=== PATIENT | female | born 1945 | race Caucasian/White ===

== ENCOUNTER 2019-07-23 13:15 | Outpatient (RCR) | payer SELFPAY | END 2019-07-29 15:30 | disposition home or self-care (01) | LOC: ANHCPRIII 13:15 | PROVIDERS: PCP Family Medicine; Visit Provider Family Medicine | DX: Z95.5 Presence of coronary angioplasty implant and graft (principal); Z95.1 Presence of aortocoronary bypass graft | CPT/HCPCS: 99199 ==

== ENCOUNTER 2020-12-31 09:45 | Outpatient (RCR) | payer MEDICARE, SELFPAY ==
[2020-10-06 15:42] VITALS: BP 156/80; PULSE 86; RESP 16; O2SAT 96
[2020-10-06 16:03] VITALS: PULSE 86
--- NOTE | 2021-01-04 09:09 | PCCPR ---
Absent Sravanthi called states she will not be in she has been having nausea and vomiting. She plans to give her renal MD a call for an apt.
--- NOTE | 2021-01-06 15:13 | PCCPR ---
Absent-Wed & Thurs Sravanthi is having pain with urination. She states she has pain when walking at times as well. She states they have checked her for a UTI (which was negative) & they did a CT scan and cannot find anything. She is trying to get ahold of the urologist again.
--- NOTE | 2021-01-11 10:27 | PCCPR ---
Addendum entered by Molly Nassar RN 01/21/21 11:41: LM for Sravanthi inquiring how her MD follow up went and plan for her return. Original Note: Pt called; stated they are doing further testing on some bladder findings. She has her next OV 01/19, so will be on hold until then at least.
--- NOTE | 2021-01-21 12:15 | PCCPR ---
Addendum entered by Molly Nassar RN 02/01/21 15:29: Spoke with Sravanthi. States her [employer] Assembler will not agree to letting her go off her blood thinners for x 2 more months. States she is still having challenges with her bladder. Her Urologist thinks she may have bladder cancer. She suffers frequency of urination, bladder control at times and painful urination at the end of her stream. She is going to try her TM at home prior to return however agreed to be placed on hold until she has a more definite plan to return. Original Note: Hoping to return Monday. States she has had uterine pain on and off and she isnt sure whats triggering it. She is also trying to get ahold of the director audience marketing bc she states she needs a biopsy but wont do it currently due to being on a blood thinner. She states she will keep us posted.
--- NOTE | 2021-03-11 10:55 | PCCPR ---
Absent-has to take care of her granddaughter who is out of school today.
== END 2020-12-31 23:59 | disposition home or self-care (01) ==
LOC: ANHCPREHAB 09:45
PROVIDERS: PCP Family Medicine
DX: Z95.5 Presence of coronary angioplasty implant and graft (principal)
CPT/HCPCS: 93798

== ENCOUNTER 2021-03-25 09:45 | Outpatient (RCR) | payer MEDICARE, SELFPAY | END 2021-03-25 18:30 | disposition home or self-care (01) | LOC: ANHCPREHAB 09:45 | PROVIDERS: PCP Family Medicine; Visit Provider Internal Medicine Interventional Cardiology | DX: Z95.5 Presence of coronary angioplasty implant and graft (principal) | CPT/HCPCS: 93798 ==

== ENCOUNTER 2021-11-08 10:10 | Outpatient (RCR) | payer MEDICARE, SELFPAY ==
[2021-11-08] MEDS: ACETAMINOPHEN 325 MG TABLET 650 MG PO (11:36)
[2021-11-08] MEDS: FAMOTIDINE 20 MG TABLET PO (11:36)
[2021-11-08] MEDS: diphenhydrAMINE HCl CAP 25 MG CAPSULE PO (11:36)
[2021-11-08 11:38] VITALS: BP 157/59; PULSE 81; TEMP 36.7; O2SAT 99
[2021-11-08] MEDS: BEBTELOVIMAB 175 MG/2 ML VIAL IV PUSH (12:06)
[2021-11-08 12:59] VITALS: BP 130/67
== END 2021-11-08 16:00 ==
LOC: AMCINF 10:10
PROVIDERS: PCP Family Medicine; Referring Provider Family Medicine; Visit Provider Internal Medicine Hematology & Oncology
DX: U07.1 COVID-19 (principal); I10 Essential (primary) hypertension
CPT/HCPCS: A9270; M0222; Q0222

== ENCOUNTER 2021-12-09 15:00 | Outpatient (RCR) | payer MEDICARE, SELFPAY ==
[2021-09-24 11:43] VITALS: PULSE 79
[2021-09-29 16:19] LABS: Glucose Point of Care 86 mg/dl (65-105)
[2021-12-01 16:12] LABS: Glucose Point of Care 104 mg/dl (65-105)
== END 2021-12-09 17:35 | disposition home or self-care (01) ==
LOC: ANHCPREHAB 15:00
PROVIDERS: PCP Family Medicine; Visit Provider Internal Medicine Interventional Cardiology
DX: Z95.2 Presence of prosthetic heart valve (principal); Z95.5 Presence of coronary angioplasty implant and graft
CPT/HCPCS: 93798

== ENCOUNTER 2022-09-07 12:24 | Outpatient (CLI) | payer MEDICARE, SELFPAY ==
--- NOTE | 2022-09-07 16:15 | WPDPFTINT ---
PFT Procedure Performed PFT Procedure Performed Plethysmography (Lung Vol) Diffusing Cap (DLCO) Flow Vol Loop Spirometry w/o Bronchodil PFT Interpretation This is a pulmonary function test with spirometry, plethysmography and diffusing capacity. The test was performed and results interpreted in accordance with the 2019 and 2005 ATS/ERS Task Force guidelines respectively using the Global Lung Function Initiative-2012 reference equations. Patient demonstrated good effort and cooperation. Reproducibility criteria were met. The quality of the spirometry maneuver was Grade B. Findings: Spirometry: There is decreased maximal expiratory airflow at all lung volumes with a concave expiratory flow tracing. The contour the inspiratory flow tracing is normal. The FVC is 1.38 L, 51% predicted. The FEV1 is 1.02 L, 50% predicted. The FEV1: FVC ratio 74%. Plethysmography: The total lung capacity is 3.62 L, 71% predicted. The functional residual capacity is 2.64 L, 90% predicted. The residual volume is 1.93 L, 83% predicted. Diffusing capacity: The diffusing capacity unadjusted for hemoglobin and carboxyhemoglobin is 10.5, 53% predicted. The diffusing capacity adjusted for alveolar volume is 3.96, 95% predicted. Impression: There is a combined obstructive and restrictive ventilatory abnormality. There are no guidelines to assign the severity of obstruction and restriction with a combined abnormality. In my opinion, given the concave expiratory flow tracing and normal FEV1: FVC ratio and mild restrictive abnormality I would state there is a mild obstructive abnormality and a mmoderate restrictive abnormality resulting in a moderately severe decrease in the FEV1. The diffusing capacity unadjusted for hemoglobin and carboxyhemoglobin is moderately decreased and normalizes when adjusted for alveolar volume. There are no prior studies for comparison
== END 2022-09-07 12:25 | disposition home or self-care (01) ==
LOC: ANHCARD 12:25
PROVIDERS: PCP Family Medicine; Visit Provider Family Medicine
DX: C34.12 Malignant neoplasm of upper lobe, left bronchus or lung (principal); R94.2 Abnormal results of pulmonary function studies
CPT/HCPCS: 77385; 94375; 94726; 94729

== ENCOUNTER 2022-09-22 19:03 | Emergency (ER) | payer MEDICARE, SELFPAY ==
[2022-09-22] VITALS (9 sets, daily range): BP systolic 128–176; BP diastolic 81–94; PULSE 94–107; RESP 14–22; TEMP 36.9; O2SAT 91–98
--- NOTE | ~2022-09-22 | CT_ITS ---
EXAMINATION: CTA chest PE protocol DATE: 09/22/2022 21:36 INDICATION: Dyspnea. TECHNIQUE: Computed tomography angiography (CTA) of the chest was performed with 100 mL Omnipaque-350 intravenous contrast timed to evaluate the pulmonary arteries. Coronal maximum intensity projection 3D-reconstructions were created by the technologist. Automated exposure control and iterative reconst ruction technique were employed. The dose-length product was 321.70 mGy-cm. COMPARISON: CT abdomen and pelvis 06/08/2016, chest CT 10/09/2006 FINDINGS: There is smooth septal thickening in the lungs, consistent with pulmonary edema. There is a n 11 mm nodule in right lower lobe. There is a 9 mm nodule at left major fissure. There is a 5 mm nod ule in left lower lobe. There are a few scattered nodules measuring 4 mm or less. There is a 4.5 x 3. 5 cm mass in left lower lobe. A calcified left lung nodule and calcified left hilar lymph nodes are c onsistent with old granulomatous disease. There are small pleural effusions. There is no pulmonary em bolus. There is mild mediastinal and bilateral hilar lymphadenopathy. Cardiomegaly is noted. There ar e changes of aortic valve replacement. There are changes of coronary artery bypass grafting. There ar e bilateral mastectomies. There are surgical clips in the axillae bilaterally. There are chronic mass es in the adrenal glands measuring up to 2.0 cm on the right, likely adenomas. There is mild thoracic spondylosis. IMPRESSION: 1. No pulmonary embolus. 2. Mild pulmonary edema with small pleural effusions. 3. Pulmonary nodules and left lung lower lobe mass, consistent with metastatic disease. Reviewed, dictated and finalized at location E.
--- NOTE | ~2022-09-22 | XR_ITS ---
EXAMINATION: XR chest 1V portable DATE: 09/22/2022 19:44 INDICATION: Dyspnea. TECHNIQUE: A single frontal view of the chest was obtained. COMPARISON: Chest 2 views 12/21/2017, CT abdomen and pelvis 06/08/2016 FINDINGS: There is a diffuse interstitial pattern in the lungs. No pleural effusion or pneumothorax. The heart size is normal. There are changes of aortic valve replacement. Median sternotomy wires and mediastinal surgical clips are seen, likely from prior coronary artery bypass grafting. There are maddie gical clips in the axillae bilaterally. There are bilateral mastectomies. IMPRESSION: 1. Diffuse lung disease, likely mild pulmonary edema. Reviewed, dictated and finalized at location E.
--- NOTE | 2022-09-22 19:07 | ECG_ITS ---
Measurements Intervals [place] Rate: 99 P: 57 OK: 144 QRS: -9 QRSD: 154 T: 124 QT: 388 QTc: 499 Interpretive Statements SINUS RHYTHM POSSIBLE LEFT ATRIAL ENLARGEMENT LEFT BUNDLE BRANCH BLOCK ABNORMAL ECG NO PREVIOUS ECG AVAILABLE FOR COMPARISON Electronically Signed On 09-22-2022 21:12:17 CDT by Travis Valera D.O.
[2022-09-22 19:21] LABS: Basophils Percent Auto 0.3 % (0.2-1.2); Eosinophils Absolute Auto 0.1 K/mm3 (0-0.3); Eosinophils Percent Auto 3.4 % (0-4.4); Hematocrit 37.4 % (37.0-47.0); Hemoglobin 12.7 g/dL (12.0-15.0); Immature Granulocyte Absolute 0.01 K/mm3 (0.00-0.031); Immature Granulocyte Percent A 0.3 % (0-0.5); Lymphocytes Absolute Auto 0.91 K/mm3 (0.9-3.2); Lymphocytes Percent Auto 26.1 % (18.3-44.2); Mean Corpuscular Hemoglobin 30.6 pg (26-34); Mean Corpuscular Volume 90.1 fl (80-100); Mean Platelet Volume 10.3 fl (7.4-10.4); Monocytes Absolute Auto 0.3 K/mm3 (0.1-0.6); Monocytes Percent Auto 9.2 % (2.6-8.5); Neutrophils Absolute Auto 2.1 K/mm3 (1.3-6.7); Neutrophils Percent Auto 60.7 % (45.5-73.1); Platelet Count Result 177 k/mm3 (150-375); Red Blood Count 4.15 M/mm3 (4.2-5.4); White Blood Count 3.5 K/mm3 (4.5-10.0)
--- NOTE | 2022-09-22 19:21 | PC.NURSE ---
This RN assumed care of patient.
[2022-09-22 19:31] LABS: Alanine Aminotransferase 18 U/L (6-35); Alkaline Phosphatase 101 U/L (38-126); Anion Gap 7 mmol/L (8-16); Aspartate Amino Transferase 23 U/L (14-36); Bilirubin,Total 0.7 mg/dL (0.2-1.3); Blood Urea Nitrogen 18 mg/dL (7-17); Calcium 8.7 mg/dL (8.4-10.2); Carbon Dioxide 26 mmol/L (22-30); Chloride 105 mmol/L (98-107); Estimated CRCL calculation 51 ml/min; Estimated Glomerular Filt Rate > 60; Glucose 146 mg/dL (65-110); Lipase 43 U/L (23-300); Potassium 3.6 mmol/L (3.4-5.0); Sodium 138 mmol/L (137-145)
--- NOTE | 2022-09-22 19:32 | ED.ARRPALP ---
HPI - Arrhythmia/Palpitations General Chief Complaint: Arrhythmia/Palpitations <Cecelia Warren MD - Last Filed: 09/22/22 22:13> Stated Complaint: my heart <Cecelia Warren MD - Last Filed: 09/22/22 22:13> Time Seen by Provider: 09/22/22 19:22 <Cecelia Warren MD - Last Filed: 09/22/22 22:13> Source: patient <Cecelia Warren MD - Last Filed: 09/22/22 22:13> Mode of arrival: ambulatory <Cecelia Warren MD - Last Filed: 09/22/22 22:13> Limitations: no limitations <Cecelia Warren MD - Last Filed: 09/22/22 22:13> History of Present Illness HPI narrative: Patient is a 77-year-old female with a history of breast cancer status post bilateral mastectomies, hypertension, coronary artery disease, CABG, type 2 diabetes, hyperlipidemia, presenting to the emergency department for evaluation of anterior chest pressure and shortness of breath. Patient states she began to feel unwell 2 days ago. She reports difficulty breathing, cough. She reports rhinorrhea and congestion. She denies sore throat. No recent sick contacts. Patient denies leg swelling or calf pain. She denies history of anticoagulation. She does take dual antiplatelet therapy. Patient is known to have a right lower lung tumor that is not thought to be related to her breast cancer. She follows with [facility]. <Cecelia Warren MD - Last Filed: 09/22/22 22:13> Related Data Home Medications: Home Medications Medication Instructions Recorded Confirmed aspirin 81 mg tablet,delayed 81 mg PO DAILY 05/30/19 09/13/22 release (Adult Aspirin Regimen) lacosamide 100 mg tablet (Vimpat) 100 mg PO Q12H 05/30/19 09/13/22 diazepam 2 mg tablet 2 mg PO BID PRN Anxiety 07/11/19 09/13/22 nitroglycerin 0.4 mg sublingual 0.4 mg sublingual Q5M PRN Angina 07/11/19 09/13/22 tablet (Nitrostat) rosuvastatin 5 mg tablet 5 mg PO DAILY 10/06/20 09/13/22 diphenhydramine HCl 50 mg capsule 50 mg PO HS PRN Allergy Symptoms 09/24/21 09/13/22 carvedilol 3.125 mg tablet 3.125 mg PO Q12H 08/29/22 09/13/22 <Cecelia Warren MD - Last Filed: 09/22/22 22:13> Allergies/Adverse Reactions: Allergies Allergy/AdvReac Type Severity Reaction Status Date / Time ibuprofen Allergy Severe Anaphylactic Verified 09/22/22 19:04 Shock NSAIDS (Non-Steroidal Allergy Severe ANAPHALACTIC Verified 09/22/22 19:04 Anti-Inflamma SHOCK meperidine Allergy Mild vomiting Verified 09/22/22 19:04 ampicillin Allergy Unknown Skin Verified 09/22/22 19:04 Reaction codeine Allergy Unknown VOMITS Verified 09/22/22 19:04 VIOLENTLY divalproex sodium [Depakote] Allergy Unknown spaced out Verified 09/22/22 19:04 iodine Allergy Unknown VOMITS Verified 09/22/22 19:04 VIOLENTLY AND NON STOP morphine Allergy Unknown VOMITS Verified 09/22/22 19:04 VIOLENTLY naproxen Allergy Unknown anaphalaxis Verified 09/22/22 19:04 Opioids - Morphine Analogues Allergy Unknown Unknown Verified 09/22/22 19:04 Penicillins Allergy Unknown NAUSEA, Verified 09/22/22 19:04 VOMITING, DIARRHEA prednisone Allergy Unknown spaced out Verified 09/22/22 19:04 Contrast Media Allergy Unknown Unknown Uncoded 09/22/22 19:04 <Cecelia Warren MD - Last Filed: 09/22/22 22:13> Review of Systems Review of Systems: CONSTITUTIONAL: Denies fever, chills, or sweats. EYES: Denies visual changes, redness, or discharge. ENT: Reports rhinorrhea, congestion, denies sore throat, or otalgia. CARDIOVASCULAR: Reports chest pain without palpitations, or edema. RESPIRATORY: Reports cough and dyspnea GASTROINTESTINAL: Denies abdominal pain, nausea, vomiting, or diarrhea. GENITOURINARY: Denies dysuria or hematuria. SKIN: Denies rash or itching. MUSCULOSKELETAL: Denies back pain, joint pain, or myalgia. NEUROLOGIC: Denies headache, numbness, reports generalized weakness <Cecelia Warren MD - Last Filed: 09/22/22 22:13> [facility] Past Medical History Medical Hi
[2022-09-22 19:33] LABS: Partial Thromboplastin Time 25.9 SECONDS (22.3-36.8); Prothrombin Time 13.9 Seconds (11.1-14.7)
[2022-09-22] MEDS: LEVALBUTEROL NEB 1.25 MG/3 ML INHALATION (19:54)
[2022-09-22] MEDS: NITROGLYCERIN SL 0.4 MG TABLET SUBLINGUAL (19:58)
[2022-09-22 19:59] LABS: Troponin I 0.051 ng/mL (0.000-0.034)
[2022-09-22 20:07] LABS: Alveolar/Arterial O2 Gradient 67.6 mmHg; Base Excess ABG -0.8 mEq/l (+/-2.0); Carboxyhemoglobin 0.8 % THb (0-2.0); Fractional Inspired Oxygen 28 %; Methemoglobin ABG 0.1 %THb (0-1.5); Oxygen Content ABG 17.3 %vol (16.0-22.0); Oxygen Saturation ABG 97.7 % (95.0-100.0); Oxyhemoglobin 95.7 % THb (90.0-100.0); PCO2 ABG 30.9 mmHg (35.0-45.0); PO2 ABG 95.6 mmHg (80.0-100.0); PO2 FiO2 Ratio Arterial Blood 3.41 %; Reduced Hemoglobin 3.4 %THb (0-5.0); Total Hemoglobin 12.8 g/dL (12.0-18.0)
[2022-09-22 20:08] LABS: Device NASAL CANNULA; Site Drawn RIGHT BRACHIAL
[2022-09-22 20:18] LABS: D Dimer 1.33 ug/mL (<0.48)
[2022-09-22] MEDS: SODIUM CHLORIDE 0.9% IV 500 ML 999 ML IV CONT (20:18)
[2022-09-22] MEDS: methylPREDNISolone SOD SUCC 125 MG VIAL IV PUSH (20:18)
[2022-09-22 20:24] LABS: NT Pro B Type Natriuretic Pept 5160 pg/mL (19.9-100)
[2022-09-22 20:47] LABS: Lactic Acid Reflex 0.8 mmol/L (0.7-2.0)
[2022-09-22] MEDS: diphenhydrAMINE HCl INJ 50 MG/ML VIAL IV PUSH (20:50)
[2022-09-22 20:57] LABS: Appearance Urine Clear (Clear); Bacteria Urine None Seen /hpf; Bilirubin Urine Negative (Negative); Blood Urine Negative (Negative); Color Urine Yellow (Yellow); Glucose Urine UA 3+ mg/dL (Negative); Ketones Urine Negative (Negative); Leukocyte Esterase Ur Negative LEU/UL (Negative); Nitrate Urine Negative (Negative); Non Pathogenic Casts 0-2; Protein Urine Trace mg/dL (Negative); RBC Urine 0-2 /hpf (0-2); Specific Grav Ur 1.023 (1.001-1.035); Squamous Epithelial Cell Urine Few /hpf (Few); Urobilinogen Urine 0.2 mg/dL (<2.0); WBC Urine 0-5 /hpf; pH Urine 5.5 (5.0-9.0)
[2022-09-22 21:00] LABS: Add Urine Microscopic? YES
[2022-09-22 21:01] LABS: Troponin I 0.045 ng/mL (0.000-0.034)
[2022-09-22 21:15] LABS: Influenza A QL RT-PCR Negative (Negative); Influenza B QL RT-PCR Negative (Negative); RSV RNA, RT-PCR Negative (Negative); SARS-CoV-2 RNA PCR Negative (Negative)
[2022-09-22] MEDS: HEPARIN SOD/D5W 100 UNITS/ML 25,000 UNITS/250 ML BAG 7 UNITS IV CONT (21:45)
[2022-09-22] MEDS: HEPARIN SODIUM 5,000 UNITS/ML VIAL 3500 UNITS IV PUSH (21:45)
[2022-09-22] MEDS: FUROSEMIDE INJ 40 MG/4 ML VIAL 20 MG IV PUSH (22:47)
--- NOTE | 2022-09-22 23:02 | PC.NURSE ---
Discontinued heparin drip verbal order from MD Dr. Warren.
[2022-09-23] VITALS (24 sets, daily range): BP systolic 130–154; BP diastolic 70–87; PULSE 76–106; RESP 0–23; O2SAT 93–96
[2022-09-23 04:12] LABS: Troponin I 0.041 ng/mL (0.000-0.034)
[2022-09-23 06:41] LABS: Basophils Percent Auto 0.3 % (0.2-1.2); Hematocrit 36.3 % (37.0-47.0); Hemoglobin 12.2 g/dL (12.0-15.0); Immature Granulocyte Absolute 0.02 K/mm3 (0.00-0.031); Immature Granulocyte Percent A 0.6 % (0-0.5); Lymphocytes Absolute Auto 0.46 K/mm3 (0.9-3.2); Lymphocytes Percent Auto 12.7 % (18.3-44.2); Mean Corpuscular HGB Conc 33.6 g/dl (32-36); Mean Corpuscular Hemoglobin 30.1 pg (26-34); Mean Corpuscular Volume 89.6 fl (80-100); Mean Platelet Volume 10.1 fl (7.4-10.4); Monocytes Absolute Auto 0.1 K/mm3 (0.1-0.6); Neutrophils Percent Auto 83.4 % (45.5-73.1); Platelet Count Result 188 k/mm3 (150-375); Red Blood Count 4.05 M/mm3 (4.2-5.4); Red Cell Distribution Width 14.9 % (11.5-14.5); White Blood Count 3.6 K/mm3 (4.5-10.0)
--- NOTE | 2022-09-23 07:42 | PC.NURSE ---
ALs Transfer to [facility] RM [id number] on [facility] declined [facility] accepted transfer ETA [id number] Trip # [phone]
[2022-09-23] MEDS: ASPIRIN 325 MG TABLET PO (08:58)
[2022-09-23] MEDS: CLOPIDOGREL BISULFATE 75 MG TABLET PO (08:59)
[2022-09-23] MEDS: carvediloL 3.125 MG TABLET PO (08:59)
[2022-09-23] MEDS: TELMISARTAN 40 MG TABLET 80 MG PO (08:59)
[2022-09-23] MEDS: LACOSAMIDE (*CRX) 100 MG TABLET PO (09:00)
== END 2022-09-23 09:37 | disposition short-term general hospital (02) ==
PROVIDERS: Emergency Provider Emergency Medicine; PCP Family Medicine
DX: I11.0 Hypertensive heart disease with heart failure (principal); I50.9 Heart failure, unspecified; I25.10 Atherosclerotic heart disease of native coronary artery without angina pectoris; I25.810 Atherosclerosis of coronary artery bypass graft(s) without angina pectoris; E11.9 Type 2 diabetes mellitus without complications; E78.5 Hyperlipidemia, unspecified; Z79.82 Long term (current) use of aspirin; Z85.3 Personal history of malignant neoplasm of breast; Z87.891 Personal history of nicotine dependence; Z20.822 Contact with and (suspected) exposure to COVID-19
CPT/HCPCS: 36415; 36600; 71045; 71275; 80053; 81001; 82375; 82805; 83050; 83605; 83690; 83880; 84484; 85025; 85380; 85610; 85730; 87040; 87637; 93005; 94640; 96361; 96365; 96375; 99285; A9270; J1200; J1644; J1940; J2930; J7040; Q9967

== ENCOUNTER 2023-02-13 10:22 | Outpatient (CLI) | payer MEDICARE, SELFPAY ==
--- NOTE | ~2023-02-13 | CT_ITS ---
Clinical Indication: Breast cancer, lung cancer CT Scan of the Chest, Abdomen, and Pelvis with Contrast: Technique: Contiguous sections were acquired throughout the chest, abdomen, and pelvis after intraven ous administration of 100 cc of Omnipaque 350. Dose reduction technique was used on this scan by uti lizing automated exposure control and iterative reconstruction technique. The dose-length product (DL P) was 722.51 mGy-cm. COMPARISON: 09/22/2022, 06/08/2016 Findings: There is no evidence of any significant mediastinal, hilar or axillary lymphadenopathy. Aortic valve replacement noted. There are atherosclerotic calcifications of the aorta and coronary arteries. No ce ntral pulmonary embolus seen. There is no evidence of pleural or pericardial effusion. Left lower lobe mass measures 4.2 x 2.6 cm, mildly decreased in overall extent as compared to prior e xam. 1.1 cm right lower lobe pulmonary nodule (axial image 79) is essentially unchanged. 5 mm left ap ical pulmonary nodule is slightly more conspicuous as compared to prior exam (axial image 21). 5 mm n odule noted along the fissure. There are several additional tiny scattered subcentimeter pulmonary no dules, indeterminate. The liver, spleen, pancreas, and kidneys are within normal limits. Bilateral adrenal nodules are samantha lar to prior exam. Cholecystectomy clips are present. There are atherosclerotic calcifications of the aorta. No lymphadenopathy. No bowel obstruction or bowel wall thickening. There is no evidence to suggest acute appendicitis. Urinary bladder is unremarkable. No adnexal mass evident. No ascites. Impression: Dominant left lower lobe pulmonary mass, with multiple additional smaller pulmonary nodules, as detai led above. The dominant lesion is probably mildly decreased in size from prior exam, with at least on e subcentimeter pulmonary nodule which is slightly more prominent. Findings suggest mixed partial res ponse to therapy of metastatic disease, with overall very mild interval change. Bilateral adrenal nodules, stable from prior exam. Reviewed, dictated and finalized at location M. Impression: Dominant left lower lobe pulmonary mass, with multiple additional smaller pulmo nary nodules, as detailed above. The dominant lesion is probably mildly decreas ed in size from prior exam, with at least one subcentimeter pulmonary nodule wh ich is slightly more prominent. Findings suggest mixed partial response to ther apy of metastatic disease, with overall very mild interval change. Bilateral adrenal nodules, stable from prior exam.
[2023-02-13 11:26] LABS: Estimated Glomerular Filt Rate 54
[2023-02-13 12:05] LABS: Hematocrit 40.2 % (37.0-47.0); Hemoglobin 13.4 g/dL (12.0-15.0); Mean Corpuscular HGB Conc 33.3 g/dl (32-36); Mean Corpuscular Hemoglobin 30.9 pg (26-34); Mean Corpuscular Volume 92.6 fl (80-100); Mean Platelet Volume 10.3 fl (7.4-10.4); Platelet Count Result 196 k/mm3 (150-375); Red Blood Count 4.34 M/mm3 (4.2-5.4); Red Cell Distribution Width 13.4 % (11.5-14.5); White Blood Count 7.2 K/mm3 (4.5-10.0)
[2023-02-13 12:17] LABS: Alanine Aminotransferase 21 U/L (6-35); Albumin Level 4.3 g/dL (3.5-5.1); Alkaline Phosphatase 78 U/L (38-126); Anion Gap 10 mmol/L (8-16); Aspartate Amino Transferase 22 U/L (14-36); Bilirubin,Total 0.7 mg/dL (0.2-1.3); Blood Urea Nitrogen 36 mg/dL (7-17); Calcium 9.1 mg/dL (8.4-10.2); Carbon Dioxide 26 mmol/L (22-30); Chloride 99 mmol/L (98-107); Estimated Glomerular Filt Rate 54; Glucose 255 mg/dL (65-110); Potassium 4.3 mmol/L (3.4-5.0); Sodium 135 mmol/L (137-145)
[2023-02-16 05:25] LABS: CA 15-3 41 U/mL (<32)
== END 2023-02-13 10:23 | disposition home or self-care (01) ==
PROVIDERS: PCP Family Medicine; Referring Provider Radiology Radiation Oncology; Visit Provider Internal Medicine Hematology & Oncology
DX: C50.112 Malignant neoplasm of central portion of left female breast (principal); Z17.0 Estrogen receptor positive status [ER+]; R91.8 Other nonspecific abnormal finding of lung field; K38.8 Other specified diseases of appendix; Z80.3 Family history of malignant neoplasm of breast
CPT/HCPCS: 71260; 74177; 80053; 85027; 86300; Q9967

== ENCOUNTER 2023-05-25 08:41 | Outpatient (CLI) | payer MEDICARE, SELFPAY ==
--- NOTE | ~2023-05-25 | CT_ITS ---
Clinical Indication: Lung cancer CT Scan of the Chest with Contrast: Technique: Contiguous sections were acquired throughout the chest after intravenous administration of 75 cc of Omnipaque 350. Dose reduction technique was used on this scan by utilizing automated exposu re control and iterative reconstruction technique. The dose-length product (DLP) was 173.28 mGy-cm. COMPARISON: 02/13/2023 Findings: There is no evidence of any significant mediastinal, hilar or axillary lymphadenopathy. There is no f illing defect in the pulmonary arterial tree to suggest pulmonary embolus. There is no evidence of ao rtic dissection or aneurysm. Aortic valve replacement noted. No pericardial effusion. Moderate to large left pleural effusion present. No right pleural effusion. Stable 1 cm right lower lobe pulmonary nodule. Several tiny additional scattered right lung nodules a re unchanged. There is extensive patchy left lower lobe consolidation, somewhat more rounded masslike area inferiorly (axial image 66). Images through the upper abdomen reveal no abnormalities. Impression: Moderate to large left pleural effusion, with partial left basilar atelectasis. Patchy consolidation left lower lobe with a somewhat masslike rounded area inferiorly. This is consis tent with residual versus treated disease, with probable atelectatic change or possibly post radiatio n change surrounding in the left lower lobe. Correlate with treatment history. Continued follow-up re commended. Stable 1 cm right basilar pulmonary nodule, as well as several additional scattered tiny subcentimete r right lung nodules, suspicious for metastatic disease. Stable bilateral adrenal nodules, indeterminate. Reviewed, dictated and finalized at [facility]. [employer] Impression: Moderate to large left pleural effusion, with partial left basilar atelectasis. Patchy consolidation left lower lobe with a somewhat masslike rounded area infe riorly. This is consistent with residual versus treated disease, with probable atelectatic change or possibly post radiation change surrounding in the left lo wer lobe. Correlate with treatment history. Continued follow-up recommended. Stable 1 cm right basilar pulmonary nodule, as well as several additional scatt ered tiny subcentimeter right lung nodules, suspicious for metastatic disease. Stable bilateral adrenal nodules, indeterminate.
== END 2023-05-25 08:42 | disposition home or self-care (01) ==
PROVIDERS: PCP Family Medicine; Visit Provider Internal Medicine Hematology & Oncology
DX: C34.92 Malignant neoplasm of unspecified part of left bronchus or lung (principal); J90 Pleural effusion, not elsewhere classified; R91.8 Other nonspecific abnormal finding of lung field; R91.1 Solitary pulmonary nodule; E27.9 Disorder of adrenal gland, unspecified
CPT/HCPCS: 71260; Q9967

== ENCOUNTER 2023-05-31 07:57 | Outpatient (CLI) | payer MEDICARE, SELFPAY ==
--- NOTE | ~2023-05-31 | PE_ITS ---
EXAMINATION: PET skull to mid thigh DATE: 05/31/2023 11:19 INDICATION: Lung cancer TECHNIQUE: Blood glucose level was 160 mg/dL. 8.595 mCi of 18-fluorodeoxyglucose (18-FDG) was adminis tered i.v. Low dose computed tomography (CT) images were acquired from the base of the brain to the p roximal thighs for attenuation correction and anatomic localization. Positron emission tomography (PE T) images were acquired in the same distribution beginning 76 minutes after injection. Images includi ng fused PET/CT images were reconstructed in axial, coronal, and sagittal planes. Automated exposure control technique was employed. The dose-length product was 890.22mGy-cm. COMPARISON: Chest CT dated 05/25/[address] chest, abdomen and pelvis dated 02/13/2023 FINDINGS: Head/neck: There is symmetric increased activity in the oral cavity, palatine tonsils, laryngeal muscles and ocu lar muscles without CT correlate, likely physiologic. No pathologically enlarged cervical lymphadenop athy or suspicious foci of increased FDG uptake in the visualized head or neck. Chest: 12 x 12 mm pleural-based nodules at the anterior left apex without associated increased FDG activity. 12 x 9 mm right lower lobe nodule also without associated FDG uptake. This is minimally increased in size compared with CT from for 9 years prior on 01/07/2016 at which time the nodule measured 10 x 8 m m and which measured 4 mm on study dated 10/09/2006. There are few small calcified nodules in the left lung along with calcified left hilar and mediastinal lymph nodes consistent with old granulomatous d isease. Moderate-sized left pleural effusion with partial collapse of the left lower lobe. Within the collapsed portion of the left lower lobe is a an approximately 3.2 x 2.2 cm ovoid region with higher FDG uptake with maximal SUV of 3.6 which could represent the prior 4.1 x 2.6 cm mass seen on CT date d 02/13/2023 with relatively low FDG activity and decrease in size consistent with response to treatme nt of a reported non-small cell lung cancer. Heart size is normal. Atherosclerotic coronary artery ca lcifications. Aortic valve repair and dense mitral annular calcification is. Left pectoral 3-lead car diac pacemaker with lead tips at the right atrial appendage, near the apex of the right ventricle and in a coronary vein overlying the lateral wall the left ventricle having traversed the coronary sinus . No pathologically enlarged or FDG avid thoracic lymphadenopathy. Postoperative change of bilateral mastectomies and bilateral axillary lymph node dissections with no nodular soft tissue densities or s ignificant increased FDG activity to suggest local recurrent/metastatic disease. Abdomen/pelvis/proximal thighs: Physiologic renal accumulation and excretion of FDG activity in the kidneys, bladder and along portio ns of ureters. Normal degree and heterogenous pattern of increased uptake throughout the liver withou t radiologic correlate or dominant FDG avid lesion. Again seen is a calcified hepatic nodule likely s equela of old granulomatous disease. Cholecystectomy clips the gallbladder fossa. The pancreas, splee n and right adrenal gland are normal. No FDG uptake associated with a 1.7 cm low-density left adrenal adenoma with attenuation of 7HU. Mild uptake scattered throughout the bowels without radiologic carlos elate, also likely physiologic. Couple small calcifications at the left side of the uterine fundus li carlyn related to degenerated uterine fibroids. There are likely tubal ligation clips at the bilateral adnexa. Minimal FDG activity associated with a band of superficial reticulated soft tissue density ex tending across the infraumbilical anterior abdominal wall which without significant change since 02/13 and likely inflammatory in etiology. No free intraperitoneal fluid. No other abnormal foci of i ncreased FDG uptake or pathologically enlarged lymphadenopathy in the abdomen, pelvis or p
[2023-05-31 08:27] LABS: Glucose Point of Care 160 mg/dl (65-105)
== END 2023-05-31 07:58 | disposition home or self-care (01) ==
PROVIDERS: PCP Family Medicine; Visit Provider Radiology Radiation Oncology
DX: C34.92 Malignant neoplasm of unspecified part of left bronchus or lung (principal); C50.919 Malignant neoplasm of unspecified site of unspecified female breast; R91.1 Solitary pulmonary nodule; J90 Pleural effusion, not elsewhere classified
CPT/HCPCS: 78815; A9552

== ENCOUNTER 2023-06-16 13:02 | Outpatient (CLI) | payer MEDICARE, SELFPAY ==
[2023-06-16 13:13] LABS: Kit Draw Collected
== END 2023-06-16 13:03 | disposition home or self-care (01) ==
LOC: ANHLAB 13:05
PROVIDERS: PCP Family Medicine; Visit Provider Internal Medicine Hematology & Oncology
DX: C34.92 Malignant neoplasm of unspecified part of left bronchus or lung (principal)
CPT/HCPCS: 36415